=== PATIENT | male | born 1955 | race Caucasian/White ===

== ENCOUNTER 2024-09-04 15:17 | Observation (INO) ==
[2024-09-04 19:22] LABS: ALT 87 U/L (7-52); AST 99 U/L (13-39); Albumin 3.5 g/dL (3.2-5.2); Albumin/Globulin Ratio 1.4 (1-3); Alkaline Phosphatase 69 U/L (35-149); Anion Gap 8 mmol/L (2-16); Blood Urea Nitrogen 29 mg/dL (6-24); CO2 Carbon Dioxide 27 mmol/L (22-32); Calcium 8.4 mg/dL (8.6-10.3); Chloride 94 mmol/L (101-111); Creatinine, Serum 1.56 mg/dL (0.67-1.17); Globulin 2.5 g/dL (2-4); Glucose 129 mg/dL (70-100); Potassium 3.7 mmol/L (3.5-5.0); Sodium 129 mmol/L (135-145); Total Bilirubin 1.1 mg/dL (0.2-1.0); eGFR CKD-EPI 47.5 (>60)
[2024-09-04 19:28] LABS: Hematocrit 41.9 % (38-53); Hemoglobin 14.7 g/dL (13.2-16.3); Mean Corpuscular Hemoglobin 31.7 pg (27-33); Mean Corpuscular Volume 90.6 fL (80-97); Mean Platelet Volume 10.2 fL (7.5-11.2); Platelet Count 18 10^3/uL (150-450); Red Blood Count 4.62 10^6/uL (4.06-5.63); Red Cell Distribution Width 14.4 % (12-17); White Blood Count 5.8 10^3/uL (3.6-10.2)
[2024-09-04 19:29] LABS: CRP High Sensitivity > 80.00 mg/L (<2.00)
[2024-09-04 19:36] LABS: ABS Monocytes 0.5 10^3/uL (0.0-1.1); ABS Neutrophils 3.3 10^3/uL (1.5-7.6); ABS Nucleated RBC 0.03 10^3/ul; Eosinophil % 0.1 %; Lymphocyte % 34.1 %; Nucleated Red Blood Cells % 0.5 %/100WBC (0.0-0.8); RBC Morphology Normal (Normal)
[2024-09-04] MEDS: Lactated Ringers 1000 ml BAG 1,000 ML IV ONE (20:37)
[2024-09-04 21:32] LABS: Magnesium 2.4 mg/dL (1.9-2.7)
[2024-09-04 22:19] LABS: High Sensitivity Troponin 1 Hr 21 pg/mL (<20)
[2024-09-05] MEDS ORDERED: Warfarin per PHARMACY **NOTE FOLLOW UP SCH (04:00)
[2024-09-05] MEDS: Lactated Ringers 1000 ml BAG 1,000 ML IV ONE (04:49)
[2024-09-05 05:06] LABS: Hematocrit 37.7 % (38-53); Mean Corpuscular Hemoglobin 30.9 pg (27-33); Mean Corpuscular Hgb Conc 34.6 g/dL (31-36); Mean Corpuscular Volume 89.4 fL (80-97); Mean Platelet Volume 10.3 fL (7.5-11.2); Platelet Count 14 10^3/uL (150-450); Red Blood Count 4.22 10^6/uL (4.06-5.63); White Blood Count 5.2 10^3/uL (3.6-10.2)
[2024-09-05 05:10] LABS: INR 6.99 (0.85-1.14)
[2024-09-05 06:07] LABS: Activated Partial Thrombo Time 38.2 seconds (26.0-38.0)
[2024-09-05 06:12] LABS: Albumin/Globulin Ratio 1.4 (1-3); Calcium 7.8 mg/dL (8.6-10.3); Creatinine, Serum 1.42 mg/dL (0.67-1.17); Globulin 2.1 g/dL (2-4); Potassium 3.4 mmol/L (3.5-5.0); Total Bilirubin 1.2 mg/dL (0.2-1.0); Total Protein 5.1 g/dL (6.4-8.9); eGFR CKD-EPI 53.2 (>60)
[2024-09-05 06:21] LABS: Platelet Count 19 10^3/ul (150-450)
[2024-09-05 06:23] LABS: INR 6.62 (0.85-1.14)
[2024-09-05 06:34] LABS: Hepatitis B Surface Antigen Nonreactive (Nonreactive)
[2024-09-05 06:39] LABS: Hepatitis A Ab IgM Negative (Negative)
[2024-09-05 06:40] LABS: Hepatitis B Core IgM Nonreactive (Nonreactive)
[2024-09-05 06:51] LABS: Hepatitis C Antibody Negative (Negative)
[2024-09-05 07:01] LABS: ABS Monocytes 0.4 10^3/uL (0.0-1.1); ABS Neutrophils 2.6 10^3/uL (1.5-7.6); ABS Nucleated RBC 0.01 10^3/ul; Eosinophil % 0.4 %; Lymphocyte % 39.6 %; Nucleated Red Blood Cells % 0.1 %/100WBC (0.0-0.8); RBC Morphology Normal (Normal)
[2024-09-05 07:16] LABS: Schistocytes PRESENT
[2024-09-05 09:05] LABS: Urine Appearance Turbid; Urine Bilirubin Negative (Negative); Urine Blood 2+ (Negative); Urine Color Yellow; Urine Glucose Negative (Negative); Urine Ketones Negative (Negative); Urine Nitrite Negative (Negative); Urine Protein 2+ (>=100 mg/dL) (Negative); Urine Specific Gravity 1.023 (1.002-1.030); Urine Urobilinogen Negative (Negative)
[2024-09-05 09:10] LABS: Urine Bacteria Absent /HPF (Absent); Urine Red Blood Cell 1+(3-5/hpf) /HPF (0-Trace); Urine White Blood Cell Trace(0-5/hpf) /HPF (0-Trace)
[2024-09-05] MEDS: Potassium Chlor 20 meq TAB.ER PO SCH (10:36)
[2024-09-05] MEDS ORDERED: Warfarin DAILY REMINDER **NOTE FOLLOW UP SCH (17:00)
[2024-09-06 07:09] LABS: Hemoglobin 14.4 g/dL (13.2-16.3); Mean Corpuscular Hemoglobin 32.4 pg (27-33); Mean Corpuscular Hgb Conc 35.2 g/dL (31-36); Mean Corpuscular Volume 91.9 fL (80-97); Red Blood Count 4.46 10^6/uL (4.06-5.63); Red Cell Distribution Width 14.5 % (12-17); White Blood Count 8.7 10^3/uL (3.6-10.2)
[2024-09-06 07:31] LABS: Albumin 2.9 g/dL (3.2-5.2); Albumin/Globulin Ratio 1.3 (1-3); Creatinine, Serum 1.13 mg/dL (0.67-1.17); Globulin 2.2 g/dL (2-4); Potassium 3.7 mmol/L (3.5-5.0); Total Bilirubin 1.1 mg/dL (0.2-1.0); Total Protein 5.1 g/dL (6.4-8.9); eGFR CKD-EPI 69.9 (>60)
[2024-09-06 07:59] LABS: ABS Basophils 0.1 10^3/uL (0.0-0.1); ABS Eosinophils 0.1 10^3/uL (0.0-0.5); ABS Lymphocytes 5.9 10^3/uL (1.0-4.8); ABS Monocytes 0.8 10^3/uL (0.0-1.1); ABS Neutrophils 1.8 10^3/uL (1.5-7.6); ABS Nucleated RBC 0.06 10^3/ul; Eosinophil % 1.5 %; Lymphocyte % 67.1 %; Mean Platelet Volume 13.5 fL (7.5-11.2); Nucleated Red Blood Cells % 0.6 %/100WBC (0.0-0.8); Platelet Count 53 10^3/uL (150-450)
[2024-09-06] MEDS ORDERED: METHYLPHENIDATE HCL 10 MG PO PRN (10:12)
[2024-09-06] MEDS ORDERED: OMEGA DHA EPA FISH OIL PO SCH (10:15)
[2024-09-06] MEDS: Multivitamins/Minerals TAB PO SCH (10:41)
[2024-09-06 11:22] LABS: INR 2.26 (0.85-1.14)
[2024-09-07 08:52] LABS: INR 2.13 (0.85-1.14)
[2024-09-07 09:11] LABS: Albumin/Globulin Ratio 1.3 (1-3); Calcium 8.5 mg/dL (8.6-10.3); Creatinine, Serum 1.06 mg/dL (0.67-1.17); Globulin 2.3 g/dL (2-4); Total Bilirubin 0.9 mg/dL (0.2-1.0); Total Protein 5.3 g/dL (6.4-8.9); eGFR CKD-EPI 75.5 (>60)
[2024-09-07 09:35] LABS: Hematocrit 42.9 % (38-53); Hemoglobin 14.9 g/dL (13.2-16.3); Mean Corpuscular Hemoglobin 31.5 pg (27-33); Mean Corpuscular Hgb Conc 34.7 g/dL (31-36); Mean Corpuscular Volume 90.8 fL (80-97); Mean Platelet Volume 10.4 fL (7.5-11.2); Platelet Count 53 10^3/uL (150-450); Red Blood Count 4.73 10^6/uL (4.06-5.63); Red Cell Distribution Width 14.5 % (12-17); White Blood Count 11.3 10^3/uL (3.6-10.2)
[2024-09-07 15:21] VITALS: BP 111/70
[2024-09-08 09:40] LABS: Anaplasma phagocytophilum Positive (Negative); B. miyamotoi PCR, B Negative (Negative); Babesia divergens/MO-1 Negative (Negative); Babesia ducani Negative (Negative); Ehrlichia chaffeensis Negative (Negative); Ehrlichia ewingii/canis Negative (Negative); Ehrlichia muris eauclairensis Negative (Negative)
[2024-09-11 10:36] LABS: IgG Immunoblot Negative
[2024-09-11 10:37] LABS: IgM Immunoblot Positive
== END 2024-09-07 15:55 | disposition home or self-care (01) ==
LOC: EDHOLD 15:17 → ED 15:17 → SUATTDRO 09-05 03:25 → EDHOLD 09-05 08:06 → MEDTELE 09-05 08:11
PROVIDERS: ADMIT Hospitalist; ATTEND Internal Medicine